=== PATIENT | male | born 1945 | race Caucasian/White ===

== ENCOUNTER → 2017-08-06 | Outpatient (CLI) | payer OTHER | LOC: FIMAGING 15:47 | PROVIDERS: ATTEND Neurological Surgery | DX: Z01.812 Encounter for preprocedural laboratory examination (principal); Z85.118 Personal history of other malignant neoplasm of bronchus and lung ==

== ENCOUNTER 2017-11-15 07:48 | Inpatient (IN) | payer OTHER ==
[~2017-11-15 07:48] MED LIST: BACITRACIN 50,000 UNITS/10 ML SYR IRR ONE; BUPIVACAINE 0.25% 30 ML SDV ONE; CHLORHEXIDINE GLUC HIBICLENS 118 ML BTL TP ONE; THROMBIN (BOVINE) 5,000 UNIT VIAL TP ONE
[2017-11-15] MEDS ORDERED: GABAPENTIN 300 MG CAP PO ONE (07:59)
[2017-11-15] MEDS ORDERED: morphINE PF 5 MG/10 ML INJ IT ONE (07:59)
[2017-11-15] MEDS ORDERED: fentaNYL 100 MCG/2 ML INJ IT ONE (07:59)
[2017-11-15] MEDS ORDERED: ceFAZolin 2 GM/SWFI 2 GM/20 ML SYR IVP ONE (07:59)
[2017-11-15] MEDS ORDERED: ACETAMINOPHEN 500 MG TAB PO ONE (07:59)
[2017-11-15] MEDS ORDERED: TRANEXAMIC ACID 1,000 MG in NS (SYRINGE) 50 ML IV ONE (08:00)
[2017-11-15] MEDS ORDERED: LR 1,000 ML IV ONE (08:01)
[2017-11-15] MEDS ORDERED: MIDAZOLAM 2 MG/2 ML VIAL IVP ONE (10:07)
--- NOTE | 2017-11-15 10:11 | PDHPUP ---
History & Physical Update H&P update statement: This history and physical update is based on an assessment of the patient which was completed after admission or registration (within 24 hours), but prior to the surgery/procedure. H&P update: H&P reviewed & patient examined, no change in patient's condition since H&P completed
[2017-11-15] MEDS ORDERED: MIDAZOLAM 2 MG/2 ML VIAL ONE (10:15)
[2017-11-15] MEDS ORDERED: fentaNYL 100 MCG/2 ML INJ ONE ×4 (10:22→14:12)
[2017-11-15] MEDS ORDERED: REMIFENTANIL HCL 1 MG VIAL ONE (10:22)
[2017-11-15] MEDS ORDERED: ONDANSETRON 4 MG/2 ML VIAL ONE (10:23)
[2017-11-15] MEDS ORDERED: LIDOCAINE 2% 100 MG/5 ML SYR ONE (10:23)
[2017-11-15] MEDS ORDERED: PROPOFOL/EMULSION 500 MG/50 ML BOTTLE IV ONE (10:23)
[2017-11-15] MEDS ORDERED: DEXAMETHASONE 4 MG/ML VIAL ONE ×2 (10:23)
[2017-11-15] MEDS ORDERED: PHENYLEPHRINE HCL 100 MCG/ML SYR ONE (10:36)
[2017-11-15] MEDS ORDERED: epHEDrine SULFATE 10 MG/ML SYR ONE (10:48)
--- NOTE | 2017-11-15 10:57 | PDANEPAE ---
ANE History of Present Illness spondylolisthesis s/f L4/5 TLIF ANE Past Medical History - Cardiovascular History Hx Hypertension: Yes Hx Arrhythmias: Yes Hx Chest Pain: No Hx Coronary Artery / Peripheral Vascular Disease: Yes Hx CHF / Valvular Disease: No Hx Palpitations: No - Pulmonary History Hx COPD: No Hx Asthma/Reactive Airway Disease: No Hx Recent Upper Respiratory Infection: No Hx Oxygen in Use at Home: No Hx Sleep Apnea: No Sleep Apnea Screening Result - Last Documented: Positive - Neurologic History Hx Cerebrovascular Accident: Yes Hx Seizures: No Hx Dementia: No Neurologic History Comment: TIA post-op - Endocrine History Hx Diabetes: No - Renal History Hx Renal Disorders: No - Liver History Hx Hepatic Disorders: No - Neurological & Psychiatric Hx Hx Neurological and Psychiatric Disorders: Yes Neurological / Psychiatric History Comment: sciatica. depression anxiety - Cancer History Hx Cancer: Yes Cancer History Comment: Lung cancer with lobectomy - Congenital Disorder History Hx Congenital Disorders: No - GI History Hx Gastrointestinal Disorders: No - Other Health History Other Health History: bruises easily - Chronic Pain History Chronic Pain: No - Surgical History Prior Surgeries: Right lobectomy 2014 ANE Review of Systems Review of Systems: - Exercise capacity METS (RN): 4 METS ANE Patient History - Allergies Allergies/Adverse Reactions: No Known Allergies Allergy (Verified 10/25/17 17:55) - Home Medications Home medications: home medication list seen and reviewed Home Medications: Carvedilol [Coreg (RX)] 25 mg PO BIDMEAL 01/27/13 [Last Taken 11/15/17] Pantoprazole Sodium [Protonix 40mg (RX)] 40 mg PO DAILY 01/27/13 [Last Taken ] Venlafaxine Xr [Effexor Xr 75MG (RX)] 75 mg PO DAILY 01/27/13 [Last Taken ] Dabigatran Etexilate Mesyl [Pradaxa 150 MG (*)] 150 mg PO BID 10/25/17 [Last Taken 11/12/17] Glucosamine/Chondroitin [Glucosamine/Chondroitin (*)] 1 each PO BID 10/25/17 [ Last Taken 11/10/17] Losartan Potassium [Cozaar 50 mg (*)] 50 mg PO DAILY 10/25/17 [Last Taken ] amLODIPine BESYLATE [Norvasc 10 mg (*)] 10 mg PO DAILY 10/25/17 [Last Taken ] - NPO status NPO Status: no food or drink >8 hours (except with pills) NPO Since - Liquids (Date): 11/15/17 NPO Since - Liquids (Time): 06:00 NPO Since - Solids (Date): 11/14/17 NPO Since - Solids (Time): 18:30 - Anes Hx Anes Hx: no prior problems (constipation with opiates) - Smoking Hx Smoking Status: Former smoker - Alcohol Use Alcohol Use: Rarely - Family Anes Hx Family Anes Hx: none Family Hx Anesthesia Complications: none ANE Labs/Vital Signs - Labs - CBC WBC: all reviewed and okay - Vital Signs Blood Pressure: 157/88 Heart Rate: 70 Respiratory Rate: 16 O2 Sat (%): 96 Height: 182.88 cm Weight: 85.275 kg ANE Physical Exam - Airway Neck exam: decreased ROM Mallampati Score: Class 2 Mouth exam: normal dental/mouth exam - Pulmonary Pulmonary: no respiratory distress - Cardiovascular Cardiovascular: regular rate and rhythym - ASA Status ASA Status: III ANE Anesthesia Plan Anesthesia Plan: general endotracheal anesthesia (smaller TV 2nd to previous lobectomy) Urgent/Emergent Case: Lashanda renee completed preop but documented later for safe timely pt care
[2017-11-15] MEDS ORDERED: morphINE PF 5 MG/10 ML INJ ONE (12:27)
[2017-11-15] MEDS ORDERED: BUPIVACAINE 0.25% 30 ML SDV ONE (12:47)
[2017-11-15] MEDS ORDERED: METOCLOPRAMIDE 10 MG/2 ML VIAL IVP PRN (12:52)
[2017-11-15] MEDS ORDERED: HYDROCODONE/APAP 5/325 TAB PO PRN (12:52)
[2017-11-15] MEDS ORDERED: PHENYLEPHRINE HCL 100 MCG/ML SYR IVP PRN (12:52)
[2017-11-15] MEDS ORDERED: LR 500 ML IV PRN (12:52)
[2017-11-15] MEDS ORDERED: ONDANSETRON 4 MG/2 ML VIAL IVP PRN ×2 (12:52→13:12)
[2017-11-15] MEDS ORDERED: ACETAMINOPHEN 500 MG TAB PO PRN (12:52)
[2017-11-15] MEDS ORDERED: MEPERIDINE 25 MG/ML SYR IVP PRN (12:52)
[2017-11-15] MEDS ORDERED: oxyCODONE IR 5 MG TAB PO PRN ×2 (12:52→13:12)
[2017-11-15] MEDS ORDERED: ALBUTEROL 3 ML DEYVIAL IH PRN (12:52)
[2017-11-15] MEDS ORDERED: NALOXONE HCL 0.4 MG/ML INJ IVP PRN ×2 (12:52→13:12)
[2017-11-15] MEDS ORDERED: LABETALOL HCL 5 MG/ML 20 ML MDV IVP PRN (12:52)
[2017-11-15] MEDS ORDERED: DEXAMETHASONE 4 MG/ML VIAL IVP PRN (12:52)
[2017-11-15] MEDS ORDERED: PROMETHAZINE HCL 25 MG/ML INJ IVP PRN (12:52)
[2017-11-15] MEDS ORDERED: BISACODYL 10 MG SUPP PR PRN (13:12)
[2017-11-15] MEDS ORDERED: LACTULOSE 20 GM/30 ML UDCUP PO PRN (13:12)
[2017-11-15] MEDS ORDERED: ONDANSETRON DISINTEGRATING 4 MG TAB PO PRN (13:12)
[2017-11-15] MEDS ORDERED: METHOCARBAMOL 750 MG TAB PO PRN (13:12)
[2017-11-15] MEDS ORDERED: diphenhydrAMINE 25 MG CAP PO PRN (13:12)
[2017-11-15] MEDS ORDERED: HYDROmorphONE/DILAUDID 6 MG/30 ML PCA IV PRN (13:12)
[2017-11-15] MEDS ORDERED: MAGNESIUM HYDROXIDE 30 ML UDCUP PO PRN (13:12)
[2017-11-15] MEDS ORDERED: HYDROmorphONE/DILAUDID 1 MG/ML INJ IVP PRN (13:12)
[2017-11-15] MEDS ORDERED: PROPOFOL 200 MG/20 ML VIAL ONE (13:14)
[2017-11-15] MEDS ORDERED: NS W/ 20 KCl/L 1,000 ML IV SCH (13:15)
--- NOTE | 2017-11-15 13:19 | SOAPPROG ---
SOAP Progress Note Assessment/Plan: Assessment: 72 yo M sp L4/5 TLIF Plan: stable PT/OT LSO brace when out of bed scd/cesar/lovenox for dvt prophylaxis please call with neuro changes 11/15/17 13:18 Subjective: + back pain, no leg pain. Objective: Vital Signs Temp Pulse Resp BP Pulse Ox 36.7 C 70 16 157/88 H 96 11/15/17 08:18 11/15/17 10:57 11/15/17 10:57 11/15/17 10:57 11/15/17 10:57 somnolent PERRL, no facial droop LOU x 4 + light touch ICD10 Worksheet Patient Problems: Problems Problem Status Onset Atrial fibrillation or flutter Acute
--- NOTE | 2017-11-15 13:53 | PDMN ---
Medical Necessity Medical necessity: [facility] IP only surgery; cpt 23012 Lumbar Fusion-L4/5 TLIF
[2017-11-15] MEDS: fentaNYL 100 MCG/2 ML INJ IVP PRN ×4 (13:54→14:19)
[2017-11-15] MEDS ORDERED: ceFAZolin 2 GM/DEXTROSE 100 ML IV SCH (14:00)
[2017-11-15] MEDS ORDERED: oxyCODONE IR 5 MG TAB ONE (14:03)
[2017-11-15] MEDS ORDERED: HYDROmorphone HCL/NS 0.5 MG/ML SYR IVP PRN (14:31)
[2017-11-15] MEDS: CARVEDILOL 25 MG TAB PO SCH (17:41)
[2017-11-15] MEDS: ceFAZolin 2 GM/SWFI 2 GM/20 ML SYR IVP SCH (17:41)
[2017-11-15] MEDS: POLYETHYLENE GLYCOL 3350 17 GM PKT PO SCH ×2 (17:41→22:19)
[2017-11-15] MEDS: SENNOSIDES/DOCUSATE SODIUM TAB PO SCH (20:24)
[2017-11-15] MEDS: FAMOTIDINE 20 MG TAB PO SCH (20:24)
[2017-11-15] MEDS: morphINE SR 30 MG TAB PO SCH (20:25)
[2017-11-15] MEDS ORDERED: morphINE SR 15 MG TAB PO SCH (21:00)
--- NOTE | 2017-11-15 21:23 | GOP ---
[f rep st] OPERATIVE REPORT DATE OF OPERATION: 11/15/2017 SURGEON: Isaiah Arreola MD NEUROSURGEON: Isaiah Arreola MD. H[employer] W[employer] GL[employer] TUBE CUTTER: REMY Hwang. ANESTHESIA: General endotracheal. PREOPERATIVE DIAGNOSIS: Severe L4-5 degenerative joint disease and lateral recess impingement with i ntractable back and left leg pain. Failed conservative care. Failed back surgery syndrome, status p ost multiple prior back surgeries. POSTOPERATIVE DIAGNOSIS: Severe L4-5 degenerative joint disease and lateral recess impingement with intractable back and left leg pain. Failed conservative care. Failed back surgery syndrome, status post multiple prior back surgeries. PROCEDURE PERFORMED: Redo left-sided L4-5 posterior hemilaminectomy and facetectomy for decompressio n. L4-5 posterior nonsegmental (pedicle screw and axle device) fixation and posterolateral fusion wit h local autograft and bone morphogenic protein. L4-5 posterior/transforaminal lumbar interbody fusion with 2 structural PEEK interbody spacers, local autograft and bone morphogenic protein. Use of intr aoperative microscopy fluoroscopy and computer volumetric stereotactic navigation with intraoperative neurophysiologic testing. Injection of intrathecal narcotic analgesics. Injection of subcutaneous and intramuscular local anesthesia for postoperative pain control. FINDINGS: ESTIMATED BLOOD LOSS: 75 cc. INDICATIONS: The patient is a 72-year-old male with intractable low back pain and left lower extremi ty radicular discomfort secondary to severe degenerative joint disease and neural foraminal encroachm ent. He has failed multiple other prior back surgeries and presents now for a decompression and stab ilization procedure through a mini open approach. DESCRIPTION OF PROCEDURE: After informed consent was obtained, the patient was taken to the operatin g room and placed in the prone position on the Temo table. The lumbosacral area was prepped and d raped in a sterile fashion. After fluoroscopic localization of the correct levels, the subcutaneous and intramuscular tissues were infiltrated with local anesthesia. A midline linear incision was then created over the L4-5 spinous processes. This was carried down to the fascial layer, which was then incised using monopolar electrocautery and carried in a subperiosteal plane along the spinous proces ses and lamina bilaterally. Intraoperative fluoroscopy was again utilized to verify the correct leve ls. Following this, the dissection was carried out over the facet joints. The microscope was then b rought in and a left-sided redo posterior hemilaminectomy was performed with complete unroofing of th e facet joint and neural foramen at L4 and L5. After widely decompressing the nerves and central can al as well, the Stealth Neuronavigational System was brought in and pedicle screws were placed on the left at the L4 and L5 levels using computer volumetric stereotactic navigation. Rods were then plac ed and secured under distraction, during which time a complete diskectomy was performed with preparat ion of the endplates and placement of 2 structural PEEK interbody spacers, local autograft and bone m orphogenic protein for an L4-5 posterior/transforaminal lumbar interbody fusion. The screw and mono s ystem were then placed in a slight amount of compression in order to facilitate bony union and to min imize the potential for posterior graft migration. An axle device was then placed at the L4-5 level in lieu of right-sided pedicle screws in order to minimize the potential for root irritation by the s crews or pedicle cracking or other issues and to maximize the bony surface area for the posterolatera l fusion. Following placement of the axle device, the remaining lamina and facet joints were extensi vely decorticated on the right side at the L4-5 level and the area packed with the local autograft an d bone morphogenic protein and morselized autograft for a posterolateral fusion at the L4-5 level. 2 00 mcg of Duramorph along with 50 mcg of fentanyl were then injected intrathecally. The subcutaneous and intramuscular tissues were re-infiltrated with local anesthesia. A drain was placed and the wou nd was closed in a layered fashion using interrupted Vicryl sutures followed by Steri-Strips on the s kin. COMPLICATIONS: None. DISPOSITION: The patient was extubated and transferred to the recovery room in stable condition. /[id number]/MODL
[2017-11-16] MEDS: ceFAZolin 2 GM/SWFI 2 GM/20 ML SYR IVP SCH (02:19)
--- NOTE | 2017-11-16 07:12 | NEUSURGPN ---
Date of Surgery: 11/15/17 Post Op Day: 1 Assessment/Plan: Assessment: 72 yo M sp L4/5 TLIF POD #1 Plan: -neuro stable -pt with urinary retention issues-RNs could not place puckett. Pt had 524 cc by bladder scan at 0530 this am. Pt has had 2 separate straight cath procedures. Pt refuses to let RNs cath again -call placed to Dr Ring (medical education specialist Urology) for consult-recommended urojet of lidocaine and let this sit for about 10 min and try puckett. RN updated and will attempt this. -pt states that he is ok with Urologist -PT/OT-CPM -LSO brace when out of bed -scd/cesar/lovenox for dvt prophylaxis -pt to dc later today once puckett is removed -MIGUEL still productive -please call with neuro changes Subjective: Awake and alert. NAD. Eating/drinking. No f/c/n/v/d. No woodson/neck/chest/abd complaints. Objective: AAO x 3, PERRLA/EOMI no droop CN 2-12 grossly intact +lt touch 5/5 BUE/BLE = CDI MIGUEL in place Neuro Check Frequency: per routine Urinary Catheter in Place: No Urinary Catheter Indication: Other (Use Comment) (Pt unable to void. Cath x 2. Puckett to be placed by Urology) - Physician Discussed Patient with : [facility] Physical Exam - Vitals, I&O, Labs I and O 11/15/17 11/16/17 11/17/17 05:59 05:59 05:59 Intake Total 2885 Output Total 810 Balance 2075 Weight 85.2 kg Intake: Oral (ml) 1200 IV Intake (ml) 900 IV Infused (ml) 785 NS W/ 20 KCl/L 1,000 ml @ 785 75 mls/hr IV CONT VIVIAN Rx #:[id number] Output: Urine (ml) 500 Catheter 500 Urinal 0 Estimated Blood Loss (ml) 100 MIGUEL Drain Output (ml) 210 #1 Back Temo Duncan 210 Other: Bladder Scan Volume (ml) Catheter 524 Vital Signs Temp Pulse Resp BP Pulse Ox 37.0 C 74 16 160/89 H 98 11/16/17 04:00 11/16/17 04:00 11/16/17 04:00 11/16/17 04:00 11/16/17 04:00 Laboratory Results 11/16/17 04:29 11/16/17 04:29 ICD10 Worksheet Patient Problems: Problems Problem Status Onset Atrial fibrillation or flutter Acute
[2017-11-16 07:30] LABS: PLATELET COUNT 323 10^3/uL (150-400)
[2017-11-16] MEDS ORDERED: LIDOCAINE 2% JELLY 20 ML (UROJECT) UR ONE (07:45)
[2017-11-16] MEDS: POLYETHYLENE GLYCOL 3350 17 GM PKT PO SCH (08:13)
[2017-11-16] MEDS: morphINE SR 30 MG TAB PO SCH (08:13)
[2017-11-16] MEDS: FAMOTIDINE 20 MG TAB PO SCH (08:13)
[2017-11-16] MEDS: SENNOSIDES/DOCUSATE SODIUM TAB PO SCH (08:13)
[2017-11-16] MEDS: CARVEDILOL 25 MG TAB PO SCH (08:14)
[2017-11-16] MEDS ORDERED: ENOXAPARIN 40 MG/0.4 ML SYR SC SCH (09:00)
[2017-11-16] MEDS ORDERED: VENLAFAXINE XR 75 MG CAP PO SCH (09:00)
[2017-11-16] MEDS ORDERED: PANTOPRAZOLE SODIUM 40 MG TAB PO SCH (09:00)
[2017-11-16] MEDS ORDERED: LOSARTAN POTASSIUM 50 MG TAB PO SCH (09:00)
--- NOTE | 2017-11-16 12:18 | ASMTCMCOM ---
CM Note CM Note Notes: Met with patient regarding discharge plan of care. Patient reports he lives at home alone but has a son here that will stay with him initially. We discussed the possibility of home health care, patient refuses and states 'I am not ready for that at this point.' Patient will likely discharge home with support of family. Discussed with PT who stated patient did well on stairs this morning. CM available for any changes. Plan: Discharge home with family Date Signed: 11/16/2017 12:17 PM Electronically Signed By:Soraya Fontenot RN
--- NOTE | 2017-11-16 13:22 | ASMTLACE ---
ALEXEY Length of stay for Answers: 1 day current admission Acuity / Level of Answers: Yes Care: Did the patient have an inpatient admission? Comorbidities - select Answers: Cerebrovascular disease all that apply (CVA, TIA, aneurysms, vasc ular dementia) Coronary Artery Disease Other Notes: HTN # of Emergency department Answers: 0 visits in the last 6 months Social determinants Answers: Mental health diagnosis (anxiety, depression, pers onality disorders, etc.) Score: 11 Date Signed: 11/16/2017 12:14 PM Electronically Signed By:Soraya Fontenot RN
[2017-11-16 13:25] VITALS: BP 148/81
== END 2017-11-16 15:29 | disposition home or self-care (01) | DRG 455 ==
LOC: F3N 07:48
PROVIDERS: ADMIT Neurological Surgery; ATTEND Neurological Surgery
PROC: 4A1004G Monitoring of Central Nervous Electrical Activity, Intraoperative, Open Approach (ICD-10-PCS; principal; 2017-11-15 10:15)
PROC: 0ST20ZZ Resection of Lumbar Vertebral Disc, Open Approach (ICD-10-PCS; principal; 2017-11-15 10:15)
PROC: 0SG1071 Fusion of 2 or more Lumbar Vertebral Joints with Autologous Tissue Substitute, Posterior Approach, Posterior Column, Open Approach (ICD-10-PCS; principal; 2017-11-15 10:15)
PROC: 8E0WXBZ Computer Assisted Procedure of Trunk Region (ICD-10-PCS; principal; 2017-11-15 10:15)
PROC: 0SG10AJ Fusion of 2 or more Lumbar Vertebral Joints with Interbody Fusion Device, Posterior Approach, Anterior Column, Open Approach (ICD-10-PCS; principal; 2017-11-15 10:15)
PROC: 01NB0ZZ Release Lumbar Nerve, Open Approach (ICD-10-PCS; principal; 2017-11-15 10:15)
PROC: 00NY0ZZ Release Lumbar Spinal Cord, Open Approach (ICD-10-PCS; principal; 2017-11-15 10:15)
DX: M51.36 Other intervertebral disc degeneration, lumbar region (principal); R33.9 Retention of urine, unspecified; M51.26 Other intervertebral disc displacement, lumbar region; I10 Essential (primary) hypertension
CPT/HCPCS: 97161-GP; 97165-GO; C1713; C1762; G8978-GP-CI; G8979-GP-CI; G8980-GP-CI; J0171; J0690; J1100; J1650; J2001; J2250; J2274; J2370; J2405; J2704; J3010

== ENCOUNTER → 2018-02-23 | Outpatient (CLI) | payer OTHER | LOC: BHFA 16:00 | PROVIDERS: ATTEND Internal Medicine Cardiovascular Disease | DX: I48.0 Paroxysmal atrial fibrillation (principal); I10 Essential (primary) hypertension ==